=== PATIENT | male | born 1985 | race Caucasian/White ===

== ENCOUNTER 2019-02-25 10:26 | Emergency (ER) | payer MEDICAID, OTHER ==
[~2019-02-25] VITALS: Ht 170.2 cm; Wt 81.6 kg
[2019-02-25] MEDS ORDERED: KETOROLAC TROMETHAMINE 60 MG INJ IM ONE ×2 (11:00→11:06)
[2019-02-25 11:15] VITALS: BP 125/92
== END 2019-02-25 11:22 | disposition home or self-care (01) ==
LOC: ER 10:26
DX: M54.5 Low back pain (principal); Z88.0 Allergy status to penicillin; X50.1XXA Overexertion from prolonged static or awkward postures, initial encounter; Y93.89 Activity, other specified; Y92.89 Other specified places as the place of occurrence of the external cause; Y99.8 Other external cause status
CPT/HCPCS: 96372; 99283; J1885; A4663

== ENCOUNTER 2019-03-03 10:43 | Emergency (ER) | payer MEDICAID, OTHER ==
[~2019-03-03] VITALS: Ht 170.2 cm; Wt 83.9 kg
[2019-03-03] MEDS ORDERED: KETOROLAC TROMETHAMINE 30 MG INJ ONE (11:13)
[2019-03-03] MEDS ORDERED: KETOROLAC TROMETHAMINE 30 MG INJ IM ONE (11:15)
--- NOTE | 2019-03-03 11:23 | NUR ---
Patient discharged to home in stable conditon. Written and verbal after care instructions given. Patient verbalizes understanding of instructions. Addendum: 03/03/19 at 1125 by VANITA PT WALKS IN [facility].
== END 2019-03-03 11:25 | disposition home or self-care (01) ==
LOC: ER 10:43
DX: M54.5 Low back pain (principal); Z88.0 Allergy status to penicillin
CPT/HCPCS: 96372; 99283; J1885; A4663

== ENCOUNTER 2020-05-21 16:04 | Emergency (ER) | payer MEDICAID, OTHER ==
[~2020-05-21] VITALS: Ht 165.1 cm; Wt 74.8 kg
[2020-05-21] MEDS ORDERED: HYDROCODONE/APAP 5-325MG TABLET ONE (16:41)
[2020-05-21] MEDS ORDERED: HYDROCODONE/APAP 5-325MG TABLET PO ONE (16:45)
[2020-05-21] MEDS ORDERED: LIDOCAINE VISCUS 2% 15 ML UDC MM ONE (17:00)
[2020-05-21] MEDS ORDERED: LIDOCAINE VISCUS 2% 15 ML UDC ONE (17:07)
[2020-05-21] MEDS ORDERED: NEOMY/BACITRA/POLYMYXIN B OINT UD PACKET TP ONE ×2 (18:15→18:21)
--- NOTE | 2020-05-21 18:24 | NUR ---
Patient discharged to home in stable condition. Written and verbal after care instructions given to patient. Patient verbalized understanding & compliance of instructions. Stressed follow up with primary doctor or return to ER for worsening s/s.
== END 2020-05-21 18:24 | disposition home or self-care (01) ==
LOC: ER 16:06
DX: S67.192A Crushing injury of right middle finger, initial encounter (principal); S60.131A Contusion of right middle finger with damage to nail, initial encounter; W27.8XXA Contact with other nonpowered hand tool, initial encounter; Y92.89 Other specified places as the place of occurrence of the external cause; Z88.0 Allergy status to penicillin
CPT/HCPCS: 11740; 73140; A4217; A4663